=== PATIENT | female | born 1965 | race Caucasian/White ===

== ENCOUNTER 2016-11-12 16:20 | Emergency (ER) | payer MEDICAID ==
[~2016-11-12] VITALS: Ht 160 cm; Wt 78.8 kg
[~2016-11-12 16:20] MED LIST: FIORICET PO; NO CURRENT MEDS; UNK ABX
[2016-11-12 16:23] VITALS: Ht 160 cm; Wt 78.8 kg
[2016-11-12 16:46] LABS: URINE BLOOD (Dip) POC 2+ (NEGATIVE)
[2016-11-12] MEDS ORDERED: NITR-58 PO (16:55)
--- NOTE | 2016-11-12 17:12 | ERD ---
ER Documentation Chief Complaint Date/Time DATE: 11/12/16 TIME: 17:06 Chief Complaint DYSURIA SINCE YESTERDAY HPI 51-year-old female complaining of dysuria since yesterday evening. Patient reports burning sensation while urinating, urinary frequency, and pelvic pain. She reports feeling chills and headache. Denies flank pain. Denies gross hematuria. ROS All systems reviewed and are negative except as per history of present illness. Medications Home Meds Active Scripts Nitrofurantoin Monohyd Macrocr* (Macrobid*) 100 Mg Capsr, 100 MG PO BID for 7 Days, CAP Prov:JASON SAMUEL [employer]ETING [employer]KER 11/12/16 Acetamin/Butalbital/Caffeine* (Fioricet*) [id number] Tab, 1 TAB PO Q6H Y for PAIN, #30 TAB Prov:MICHELE BEACH PA-C 04/02/16 Reported Medications [Unk Abx] No Conflict Check 11/09/09 [No Current Meds] No Conflict Check 11/07/09 Allergies Allergies: Coded Allergies: No Known Drug Allergies (Verified Allergy, Mild, 11/07/09) PMhx/Soc History of Surgery: Yes (GALLBLADDER) Anesthesia Reaction: No Hx Neurological Disorder: No Hx Respiratory Disorders: No Hx Cardiac Disorders: No Hx Psychiatric Problems: No Hx Miscellaneous Medical Probl: No Hx Alcohol Use: No Hx Substance Use: No Hx Tobacco Use: No Physical Exam Vitals Vital Signs Date Time Temp Pulse Resp B/P Pulse Ox O2 Delivery O2 Flow Rate FiO2 11/12/16 16:23 98.1 99 18 145/76 99 Physical Exam General: Well-developed, well-nourished, conscious and coherent, in no distress Skin: Warm and dry without rash, good texture and turgor Head: Normocephalic without evidence of trauma Eyes: Sclera and conjunctivae normal; pupils equal, round, and reactive to light; extraocular movements are intact Chest: Normal AP diameter. Good expansion without retractions. Nontender. Lungs are clear to auscultate bilaterally with good tidal volume Heart: Regular rate and rhythm. No murmur, rub, or gallops heard Abdomen: Soft and nontender without masses, guarding, or rebound. Bowel sounds are active. No hepatosplenomegaly Back: Without spinal or CVA tenderness Pelvis: Mild suprapubic tenderness Extremities: Full range of motion. Good strength bilaterally. No clubbing, cyanosis, or edema. Peripheral pulses are intact. Sensation intact Neuro: Alert and oriented 4, GCS 15. Cranial nerves grossly intact. Motor and sensory exams nonfocal. Moves all extremities. Speech clear. Gait normal Results 24 hrs Laboratory Tests Test 11/12/16 16:51 Bedside Urine pH (LAB) 8.5 Bedside Urine Protein (LAB) 2+ Bedside Urine Glucose (UA) Negative Bedside Urine Ketones (LAB) Negative Bedside Urine Blood 2+ Bedside Urine Nitrite (LAB) Negative Bedside Urine Leukocyte Esterase (L 1+ Procedures/MDM Well-appearing 51-year-old female presented ED with classic UTI symptoms: Dysuria, urinary frequency, and suprapubic tenderness. Urine dip is positive for UTI. Patient afebrile, no CVA tenderness, I doubt pyelonephritis. Patient appears well, stable for discharge and outpatient management. Medical decision making shared with patient and family. Education provided to patient and family. Patient and family expressed understanding of the plan. Medications on discharge: Macrobid. Follow-up: Primary care provider in 2-3 days or return to ED if worse. Disclaimer: Inadvertent spelling and grammatical errors are likely due to EHR/ dictation software use and do not reflect on the overall quality of patient care. Also, please note that the electronic time recorded on this note does not necessarily reflect the actual time of the patient encounter. Departure Diagnosis: Primary Impression: UTI (urinary tract infection) Urinary tract infection type: acute cystitis Hematuria presence: with hematuria Qualified Code: N30.01 - Acute cystitis with hematuria Condition: Good Patient Instructions: Understanding Urinary Tract Infections (UTIs) [facility] Usted se duarte hecho un examen mdico de control que le indica que no est en no condicin que requiera tratamiento urgente en el Departamento de Emergencia. Un estudio ms profundo y el tratamiento de fish condicin pueden esperar sin ningn riesgo hasta que usted sea atendida/o en el consultorio de fish mdico o no cl carina. Es responsabilidad suya arreglar no shell para el seguimiento del dedrick. MANEJO DE CONDICIONES NO URGENTES EN EL FUTURO 1) Si usted tiene un mdico de atencin primaria: Usted debera llamar a fish mdico de atencin primaria antes de venir al departamento de emergencia. Despus de las horas de consultorio, fish doctor o fish asociado/a est disponible por telfono. El mdico o enfermero de umm en el servicio telefnico puede asesorarle por yonny medio para atender el problema, o dedrick contrario se puede programar no shell. 2) Si usted no tiene un mdico de atencin primaria: Llame al mdico o clnica de referencia que aparece abajo keesha las horas de consultorio para hacer no shell para que le vean. CLINICAS: [place] [id number] [phone] [facility] [phone] [address] [facility] [facility] [phone] [facility] [phone] [facility] [place] [phone] [facility]. [phone] [address] Additional Instructions: Call your primary care doctor TOMORROW for an appointment during the next 2-3 days.See the doctor sooner or return here if your condition worsens before your appointment time. JASON SAMUEL NP Nov 12, 2016 17:11
== END 2016-11-12 17:10 | disposition home or self-care (01) ==
LOC: FTE 16:20
DX: N30.01 Acute cystitis with hematuria (principal)
CPT/HCPCS: 81003; Z7502; 99283

== ENCOUNTER → 2017-03-20 | Emergency (ER) | payer MEDICAID ==
[~2017-03-20] VITALS: Wt 69.0 kg
[~2017-03-20] MED LIST changes: +GABA300C16 PO; +HYDR-906 PO; +IBUP-1542 PO; +NITR-58 PO
--- NOTE | 2017-03-20 04:27 | ERD ---
ER Documentation Chief Complaint Chief Complaint burning sensation/pain on both feet x 1 day (KEEGAN DOMINIQUE NP) HPI 51-year-old female presents here to emergency department for complaints of burning sensation in bilateral feet area, also has occasional lower back pain. Patient describes the pain as burning pain, 4/10 scale, as was upon walking. Patient has occasional lower back pain that radiates to the bilateral lower legs. Patient denies any fever chills. Patient denies any numbness or tingling in any other parts of the body. Patient denies any headache. Patient denies any blurred vision, changes in balance or memory. Patient denies any nausea or vomiting. (KEEGAN DOMINIQUE NP) ROS All systems reviewed and are negative except as per history of present illness. (KEEGAN DOMINIQUE NP) Medications Home Meds Active Scripts Hydrocodone/Acetaminophen ([place] 5-325 Tablet) 1 Each Tablet, 1 TAB PO Q6H Y for PAIN, #20 TAB Prov:KEEGAN DOMINIQUE NP 03/20/17 Ibuprofen* (Motrin*) 600 Mg Tab, 600 MG PO Q6H Y for PAIN AND OR ELEVATED TEMP, #30 TAB Prov:KEEGAN DOMINIQUE NP 03/20/17 Gabapentin* (Gabapentin*) 300 Mg Capsule, 300 MG PO BID, #20 CAP Prov:KEEGAN DOMINIQUE NP 03/20/17 Nitrofurantoin Monohyd Macrocr* (Macrobid*) 100 Mg Capsr, 100 MG PO BID for 7 Days, CAP Prov:JASON SAMUEL NP 11/12/16 Acetamin/Butalbital/Caffeine* (Fioricet*) [id number] Tab, 1 TAB PO Q6H Y for PAIN, #30 TAB Prov:MICHELE BEACH PA-C 04/02/16 Reported Medications [Unk Abx] No Conflict Check 11/09/09 [No Current Meds] No Conflict Check 11/07/09 Allergies Allergies: Coded Allergies: No Known Drug Allergies (Verified Allergy, Mild, 11/07/09) PMhx/Soc Medical and Surgical Hx: pt denies Medical Hx History of Surgery: Yes (GALLBLADDER) Anesthesia Reaction: No Hx Neurological Disorder: No Hx Respiratory Disorders: No Hx Cardiac Disorders: No Hx Psychiatric Problems: No Hx Miscellaneous Medical Probl: No Hx Alcohol Use: No Hx Substance Use: No Hx Tobacco Use: No Smoking Status: Never smoker (KEEGAN DOMINIQUE NP) FmHx Family History: No coronary disease, No diabetes, No other (KEEGAN DOMINIQUE NP) Physical Exam Vitals Vital Signs Date Time Temp Pulse Resp B/P Pulse Ox O2 Delivery O2 Flow Rate FiO2 03/20/17 01:31 98.0 80 20 165/80 98 (ARLYN ROSENTHAL MD) Physical Exam GENERAL: The patient is well developed and appropriate for usual state of health, in no apparent distress. CHEST: Clear to auscultation bilaterally. There are no rales, wheezes or rhonchi. HEART: Regular rate and rhythm. No murmurs, clicks, rubs or gallops. No S3 or S4. ABDOMEN: Soft, nontender and nondistended. Good bowel sounds. No rebound or guarding. No gross peritonitis. No gross organomegaly or masses. No Hu sign or McBurney point tenderness. BACK: No midline or flank tenderness. EXTREMITIES: Equal pulses bilaterally. There is no peripheral clubbing, cyanosis or edema. No focal swelling or erythema. Full range of motion. Grossly neurovascularly intact. NEURO: Alert and oriented. Cranial nerves 2-12 intact. Motor strength in all 4 extremities with 5/5 strength. Sensation grossly intact. Normal speech and gait. SKIN: There is no apparent rash or petechia. The skin is warm and dry. HEMATOLOGIC AND LYMPHATIC: There is no evidence of excessive bruising or lymphedema. No gross cervical, axillary, or inguinal lymphadenopathy. Rectal: Good rectal tone, no redness no swelling no pilonidal cyst or abscess noted. (KEEGAN DOMINIQUE NP) Results 24 hrs PROCEDURE: CT Lumbar Spine without intravenous contrast CLINICAL INDICATION: Low back pain. COMPARISON: None available. TECHNIQUE: Axial noncontrast CT images of the lumbar spine with coronal and sagittal reformats. DOSE ESTIMATE: CTDI vol = 21.57 mGy. DLP = 675.87 mGy-cm. One or more of the following dose reduction techniques were used: automated exposure control, adjustment of the mA and/or kV according to patient size, or use of iterative reconstruction. DICOM images are available. FINDINGS: Segmentation: For this report the last well-formed disc is labeled L5-S1. Alignment: Normal. Vertebrae: No fracture, vertebral body height loss, or destructive bone lesion. Discs: Moderate to severe disc space loss L3-L4. Mild disc space loss L4-5 and L5-S1. Degenerative change: Anterior spinal degenerative enthesopathy L4. There are nonspecific punctate calcifications involving the inferior hepatic margin on axial images 57 and 59 measuring up to 3 mm in long dimension. An intrauterine device (IUD) is present. T12-L1: No disc herniation. No spinal canal or foraminal narrowing. L1-L2: No disc herniation. No spinal canal or foraminal narrowing. Partial calcification of the central posterior disc is noted on sagittal image 52. L2-L3: No disc herniation. No spinal canal or foraminal narrowing. L3-L4: Diffusely bulging disc asymmetric to the left lateral zone with superimposed partially calcified broad-based herniation measuring 6 mm. Resultant moderately severe central stenosis with AP diameter measuring 8 mm. Severe bilateral lateral recess stenosis with expected compression of the traversing L4 nerve roots. Moderately severe to severe left and mild right foraminal stenosis with expected impingement of the exiting left L3 nerve root. Mild bilateral facet arthropathy. L4-L5: 3 mm diffusely bulging disc asymmetric to the left lateral zone which in combination with dorsal epidural lipomatosis results in moderate central canal stenosis with AP thecal sac diameter measuring 7 mm. There is severe right lateral recess stenosis with expected compression of the traversing right L5 nerve root. Mild left foraminal stenosis. Mild to moderate bilateral facet arthropathy. L5-S1: 3.5 mm diffusely bulging disc with superimposed right subarticular disc protrusion measuring 5 mm. Severe right lateral recess stenosis with probable compression of the traversing right S1 nerve root . There is resultant moderate central canal stenosis with AP thecal sac diameter measuring 7.5 mm by combination with ligamentum flavum infolding and dorsal epidural lipomatosis. Moderately severe right foraminal stenosis. Moderate bilateral facet arthropathy. Para-vertebral soft tissues: Normal. Additional comment: None. IMPRESSION: 1. L3-L4: Moderately severe central canal stenosis, severe bilateral lateral recess stenosis with compression of the bilateral traversing L4 nerve roots. Moderately severe to severe left and mild right foraminal stenosis with extension impingement of the exiting right L3 nerve root. 2. L4-5: Moderate central canal stenosis, severe right lateral recess stenosis with expected compression of the traversing right L5 nerve root. 3. L5-S1: 3.5 mm diffusely bulging disc with superimposed 5 mm right subarticular disc protrusion with severe right lateral recess stenosis and probable compression of the traversing right S1 nerve root. Moderate central canal and moderate right foraminal stenosis. RPTAT: HRSR Physician Shaq Date Time Electronically viewed and signed by Physician Shaq on 03/20/2017 04 :57 RR/ CC: KEEGAN DOMINIQUE NP (KEEGAN DOMINIQUE NP) Procedures/MDM Medical Decision Making: Patient's pain is most likely consistent with a back pain caused by degenerative disc disease, causing neuropathic pain. There is no suspicion for neurovascular compromise. Patient has intact sensation and circulation of the affected extremity and distal extremities. No incontinence, no suspicion for cauda equina syndrome, no saddle anesthesia, no symptoms of any acute bacterial infection, no symptoms of any perirectal abscesses, pilonidal cyst.There is low suspicion for septic arthritis. Patient does not have any fever. No symptoms of any aortic dissection or aortic aneurysm. Radiology exam does not show any fracture or dislocation. low suspicion for neurologic emergencies. Neurologic exam is normal. Disposition: Home. Patient is given prescription for ibuprofen for mild to moderate pain, [place] for severe pain Gabapentin for neuropathic pain. Patient was advised to avoid heavy lifting , apply warm compresses on affected area. Patient was advised that if symptoms are worse, numbness, tingling, high fever, unable to move joint, worsening symptoms, to return to emergency department immediately. Otherwise, patient is advised to follow up with the primary care doctor in 5-7 days for reevaluation of symptoms. Disclaimer: Inadvertent spelling and grammatical errors are likely due to EHR/ dictation software use and do not reflect on the overall quality of patient care. Also, please note that the electronic time recorded on this note does not necessarily reflect the actual time of the patient encounter. (KEEGAN DOMINIQUE NP) Patient was seen exclusively by the mid-level provider. I was available for consult, but was not consulted to see the patient. (ARLYN ROSENTHAL MD) Departure Diagnosis: Primary Impression: Peripheral neuropathy Peripheral neuropathy type: inflammatory polyneuropathy, other Qualified Code : G61.89 - Other inflammatory polyneuropathies Additional Impressions: Back pain Back pain location: low back pain Chronicity: acute Back pain laterality: bilateral Sciatica presence: with sciatica Sciatica laterality: bilateral sciatica Qualified Code: M54.42 - Acute bilateral low back pain with bilateral sciatica Degenerative disc disease Spinal region: lumbosacral Qualified Code: M51.37 - Degeneration of intervertebral disc of lumbosacral region Condition: Stable Patient Instructions: Neuropathy, Peripheral Additional Instructions: . Patient is given prescription for ibuprofen for mild to moderate pain, [place] for severe pain Gabapentin for neuropathic pain. Patient was advised to avoid heavy lifting , apply warm compresses on affected area. Patient was advised that if symptoms are worse, numbness, tingling, high fever, unable to move joint , worsening symptoms, to return to emergency department immediately. Otherwise, patient is advised to follow up with the primary care doctor in 5-7 days for reevaluation of symptoms. KEEGAN DOMINIQUE NP Mar 20, 2017 04:27 ARLYN ROSENTHAL MD Mar 20, 2017 06:25
--- NOTE | 2017-03-20 04:57 | RADRPT ---
PROCEDURE: CT Lumbar Spine without intravenous contrast CLINICAL INDICATION: Low back pain. COMPARISON: None available. TECHNIQUE: Axial noncontrast CT images of the lumbar spine with coronal and sagittal reformats. DOSE ESTIMATE: CTDI vol = 21.57 mGy. DLP = 675.87 mGy-cm. One or more of the following dose reduct ion techniques were used: automated exposure control, adjustment of the mA and/or kV according to pa tient size, or use of iterative reconstruction. DICOM images are available. FINDINGS: Segmentation: For this report the last well-formed disc is labeled L5-S1. Alignment: Normal. Vertebrae: No fracture, vertebral body height loss, or destructive bone lesion. Discs: Moderate to severe disc space loss L3-L4. Mild disc space loss L4-5 and L5-S1. Degenerative change: Anterior spinal degenerative enthesopathy L4. There are nonspecific punctate calcifications involving the inferior hepatic margin on axial images 57 and 59 measuring up to 3 mm in long dimension. An intrauterine device (IUD) is present. T12-L1: No disc herniation. No spinal canal or foraminal narrowing. L1-L2: No disc herniation. No spinal canal or foraminal narrowing. Partial calcification of the cent ral posterior disc is noted on sagittal image 52. L2-L3: No disc herniation. No spinal canal or foraminal narrowing. L3-L4: Diffusely bulging disc asymmetric to the left lateral zone with superimposed partially calcif ied broad-based herniation measuring 6 mm. Resultant moderately severe central stenosis with AP diam eter measuring 8 mm. Severe bilateral lateral recess stenosis with expected compression of the trave rsing L4 nerve roots. Moderately severe to severe left and mild right foraminal stenosis with expect ed impingement of the exiting left L3 nerve root. Mild bilateral facet arthropathy. L4-L5: 3 mm diffusely bulging disc asymmetric to the left lateral zone which in combination with romel juan pablo epidural lipomatosis results in moderate central canal stenosis with AP thecal sac diameter dung uring 7 mm. There is severe right lateral recess stenosis with expected compression of the traversin g right L5 nerve root. Mild left foraminal stenosis. Mild to moderate bilateral facet arthropathy. L5-S1: 3.5 mm diffusely bulging disc with superimposed right subarticular disc protrusion measuring 5 mm. Severe right lateral recess stenosis with probable compression of the traversing right S1 nerv e root . There is resultant moderate central canal stenosis with AP thecal sac diameter measuring 7. 5 mm by combination with ligamentum flavum infolding and dorsal epidural lipomatosis. Moderately sev ere right foraminal stenosis. Moderate bilateral facet arthropathy. Para-vertebral soft tissues: Normal. Additional comment: None. IMPRESSION: 1. L3-L4: Moderately severe central canal stenosis, severe bilateral lateral recess stenosis with compression of the bilateral traversing L4 nerve roots. Moderately severe to severe left and mild ri ght foraminal stenosis with extension impingement of the exiting right L3 nerve root. 2. L4-5: Moderate central canal stenosis, severe right lateral recess stenosis with expected compr ession of the traversing right L5 nerve root. 3. L5-S1: 3.5 mm diffusely bulging disc with superimposed 5 mm right subarticular disc protrusion with severe right lateral recess stenosis and probable compression of the traversing right S1 nerve root. Moderate central canal and moderate right foraminal stenosis. RPTAT: HRSR Physician Shaq Date Time Electronically viewed and signed by Physician Shaq on 03/20/2017 04:57 RR/
== END | disposition home or self-care (01) ==
LOC: FTE 01:27
DX: G61.89 Other inflammatory polyneuropathies (principal); M54.42 Lumbago with sciatica, left side; M51.37 Other intervertebral disc degeneration, lumbosacral region
CPT/HCPCS: 72131; Z7502

== ENCOUNTER 2017-11-13 00:58 | Emergency (ER) | END 2017-11-13 04:31 | disposition home or self-care (01) ==